=== PATIENT | male | born 2000 | race African-American/Black ===

== ENCOUNTER 2021-03-10 17:24 | Emergency (ER) | payer BC ==
[~2021-03-10] VITALS: Ht 180.3 cm; Wt 68.0 kg
[2021-03-10] MEDS ORDERED: IV NS 0.9% 1,000 ML BAG IV ONE (18:00)
[2021-03-10] MEDS ORDERED: KETOROLAC TROMETHAMINE INJ 30 MG/ML VIAL IV ONE (18:00)
[2021-03-10] MEDS ORDERED: ONDANSETRON HCL/PF 4 MG/2 ML VIAL IVP ONE (18:00)
[2021-03-10] MEDS ORDERED: KETOROLAC TROMETHAMINE INJ 30 MG/ML VIAL ONE (18:22)
[2021-03-10] MEDS ORDERED: ONDANSETRON HCL/PF 4 MG/2 ML VIAL ONE (18:22)
[2021-03-10] MEDS ORDERED: IBUP-1955 PO (18:30)
[2021-03-10] MEDS ORDERED: ONDA4TAB11 PO (18:30)
--- NOTE | 2021-03-10 18:39 | NUR ---
BIB SELF C/O SOB AND FEVER STARTED YESTERDAY. PT AAOX4, VSS. RR EVEN & UNLABORED. DENIES CP, DIZZINESS, N/V/D AT THIS TIME. PT SEEN & EVAL'D BY JUAN MAN. MEDICATED ORDERED, PT LETY WELL. WILL CONT TO MONITOR.
[2021-03-10 19:53] VITALS: BP 132/78
--- NOTE | 2021-03-10 19:53 | NUR ---
Patient discharged to home in stable condition. Written and verbal after care instructions given. Patient verbalizes understanding of instruction. IV removed. Catheter intact and site benign. Pressure and 4x4 applied to site. No bleeding noted.
== END 2021-03-10 19:54 | disposition home or self-care (01) ==
LOC: ER 17:27
DX: J06.9 Acute upper respiratory infection, unspecified (principal); R11.10 Vomiting, unspecified; R19.7 Diarrhea, unspecified; Z20.828 Contact with and (suspected) exposure to other viral communicable diseases; F12.90 Cannabis use, unspecified, uncomplicated; Z60.2 Problems related to living alone
CPT/HCPCS: 96361; 96374; 96375; 99284; J1885; J2405; J7030